=== PATIENT | female | born 1990 | race Caucasian/White ===

== ENCOUNTER 2020-05-01 16:15 | Emergency (ER) | payer SELFPAY ==
[~2020-05-01] VITALS: Ht 162.6 cm; Wt 97.7 kg
[2020-05-01 16:25] VITALS: BP 157/114
[2020-05-01] MEDS ORDERED: AMOXICILLIN/K CLAV 875/125MG TABLET. PO ONE (16:45)
[2020-05-01] MEDS ORDERED: DEXAMETHASONE 4 MG TABLET PO ONE (16:45)
[2020-05-01] MEDS ORDERED: HYDR-3164 PO (16:50)
[2020-05-01] MEDS ORDERED: AMOX1TAB61 PO (16:50)
[2020-05-01] MEDS ORDERED: PRED20TA PO (16:50)
--- NOTE | 2020-05-01 16:50 | PHYS DOC ---
Past Medical History Past Medical History: Migraines Past Surgical History: No Surgical History Smoking Status: Never Smoker Alcohol Use: None Drug Use: None General Adult EDM: Chief Complaint: DENTAL PROBLEM HPI: HPI: Ms. Adam is a 30-year-old white female who presents with 3-week history of dental swelling temperature sensitivity and pain. She reports having this issue about 9 months prior, this was resolved at her dentist office with incision and drainage. She reports episodic pain peaking at about 8 out of 10 with increased sensitivity to temperature, both hot and cold. Between episodes she has 0 pain. Pain does not radiate there are no alleviating factors other than rest. Review of Systems: Review of Systems: Constitutional: Denies fever or chills. [] Eyes: Denies change in visual acuity. [] HENT: Denies nasal congestion or sore throat. [] Respiratory: Denies cough or shortness of breath. [] Cardiovascular: Denies chest pain or edema. [] GI: Denies abdominal pain, nausea, vomiting, bloody stools or diarrhea. [] : Denies dysuria. [] Musculoskeletal: Denies back pain or joint pain. [] Integument: Denies rash. [] Neurologic: Denies headache, focal weakness or sensory changes. [] Endocrine: Denies polyuria or polydipsia. [] Lymphatic: Denies swollen glands. [] Psychiatric: Denies depression or anxiety. [] Heart Score: Risk Factors: Risk Factors: DM, Current or recent (<one month) smoker, HTN, HLP, family history of CAD, obesity. Risk Scores: Score 0 - 3: 2.5% MACE over next 6 weeks - Discharge Home Score 4 - 6: 20.3% MACE over next 6 weeks - Admit for Clinical Observation Score 7 - 10: 72.7% MACE over next 6 weeks - Early Invasive Strategies Current Medications: Current Medications Medications (Trade) Dose Ordered Sig/Tito Start Time Stop Time Status Last Admin Dose Admin Amoxicillin/ Clavulanate Potassium (Augmentin 875/ 125mg) 1 tab 1X ONCE 05/01/20 16:45 05/01/20 16:46 Dexamethasone (Decadron) 10 mg 1X ONCE 05/01/20 16:45 05/01/20 16:46 Allergies: Allergies: Allergies Coded Allergies Type Severity Reaction Last Updated Verified iodine Allergy Intermediate 05/01/20 Yes shellfish derived Allergy Intermediate 05/01/20 Yes Iodine, shellfish. Seasonal allergies to pollen: Sinus irritation Physical Exam: PE: Constitutional: Well developed, well nourished, no acute distress, non-toxic appearance HENT: Normocephalic, atraumatic. Cranial nerves II through XII grossly intact bilaterally. No submandibular swelling. Poor dentition, cracked second molar on left lower jaw, cavity located on third molar left lower jaw. Apparent irritated area located on left lower gumline. Eyes: PERRL, EOMI, conjunctiva normal, no discharge. Neck: Normal range of motion, no tenderness, supple. No adenopathy detected. No carotid bruit detected Lungs & Thorax: Bilateral breath sounds clear to auscultation, no wheezing Heart: Regular rate and rhythm no murmurs, S1-S2 normal, no S3 or S4. Abdomen: Soft, no tenderness. Bowel sounds present all 4 quadrant. Skin: Warm, dry, no erythema, no rash Back: No tenderness, no CVA tenderness Extremities: No tenderness, ROM intact, no edema Neurologic: Alert and oriented X 3, normal motor function, normal sensory function, no focal deficits noted Psychologic: Affect normal, judgment normal Current Patient Data: Vital Signs: Vital Signs Date Time Temp Pulse Resp B/P (MAP) Pulse Ox O2 Delivery O2 Flow Rate FiO2 05/01/20 16:25 97.8 102 20 157/114 (128) 95 Room Air 97.8 EKG: EKG: [] Radiology/Procedures: Radiology/Procedures: [] Course & Med Decision Making: Course & Med Decision Making Pertinent Labs and Imaging studies reviewed. (See chart for details) [] Lucien Disclaimer: Lucien Disclaimer: This electronic medical record was generated, in whole or in part, using a voice recognition dictation system. Departure Departure Impression: Primary Impression: Dentalgia Additional Impression: Dental caries Disposition: 01 HOME, SELF-CARE Condition: STABLE Referrals: NO PCP (PCP) Patient Instructions: Dental Caries, Toothache-Brief Additional Instructions: Please follow with your doctor and/or free clinic for further evaluation and treatment of your medical problems including hypertension. Please follow closely with your dentist or dental clinic for further management of your dental issues. Scripts Metoprolol Tartrate (METOPROLOL TARTRATE) 50 Mg Tablet 1 TAB PO BID for 14 Days, #28 TAB Prov: MICHAEL RONQUILLO DO 05/01/20 Chlorhexidine Gluconate (PERIDEX) 15 Ml Mouthwash 15 ML PO BID, #473 ML 0 Refills Prov: MICHAEL RONQUILLO DO 05/01/20 Amoxicillin/Potassium Clav (AUGMENTIN 875-125 TABLET) 1 Each Tablet 1 TAB PO BID for 7 Days, #14 TAB Prov: MICHAEL RONQUILLO DO 05/01/20 Prednisone (PREDNISONE) 20 Mg Tablet 2 TAB PO DAILY, #8 TAB Start this prescription tomorrow, Friday05/02/20 Prov: MICHAEL RONQUILLO DO 05/01/20 Hydrocodone/Apap 5-325 (NORCO 5-325 TABLET) 1 Each Tablet 0.5-1 TAB PO PRN Q6HRS PRN for PAIN, #10 TAB 0 Refills Prov: MICHAEL RONQUILLO DO 05/01/20 Justicifation of Admission Dx: Justifications for Admission: Justification of Admission Dx: N/A MICHAEL RONQUILLO DO May 01, 2020 16:50
[2020-05-01] MEDS ORDERED: METO50TA6 PO (17:08)
[2020-05-01] MEDS ORDERED: CHLO15MO2 PO (17:08)
[2020-05-01] MEDS ORDERED: HYDROcodone/APAP 5/325MG 1 TAB TABLET PO ONE (17:15)
== END 2020-05-01 17:13 | disposition home or self-care (01) ==
LOC: ER 16:15
DX: K02.9 Dental caries, unspecified (principal); K08.89 Other specified disorders of teeth and supporting structures; R60.0 Localized edema; R20.2 Paresthesia of skin; G43.909 Migraine, unspecified, not intractable, without status migrainosus; Z91.041 Radiographic dye allergy status; Z91.013 Allergy to seafood; Z88.8 Allergy status to other drugs, medicaments and biological substances
CPT/HCPCS: 99284

== ENCOUNTER 2020-11-09 08:40 | Emergency (ER) | payer SELFPAY ==
[~2020-11-09] VITALS: Ht 154.9 cm; Wt 104.0 kg
[~2020-11-09 08:40] MED LIST: AMOX1TAB61 PO; CHLO15MO2 PO; HYDR-3164 PO; METO50TA6 PO; PRED20TA PO
--- NOTE | 2020-11-09 09:41 | PHYS DOC ---
Past Medical History Past Medical History: A-Fib, Hypertension, Migraines Past Surgical History: No Surgical History Smoking Status: Never Smoker Alcohol Use: None Drug Use: None General Adult EDM: Chief Complaint: Palpitations HPI: HPI: Patient is a 30 year old female who presented to ER due to heart palpitation and chest pain since 7 AM this morning. Patient had had a headache for couple days, denies any fever, no cough, no nausea vomiting. Patient has history of atrial flutter 11 years ago. She was admitted at [facility] for a week, they did extensive work-up but did not find anything wrong. Patient is not on any medication at this time beside vitamin. Patient is not a smoker. Patient has no history of blood clot disorder. Review of Systems: Review of Systems: Constitutional: Denies fever or chills. [] Eyes: Denies change in visual acuity. [] HENT: Denies nasal congestion or sore throat. [] Respiratory: Denies cough or shortness of breath. [] Cardiovascular: Positive for chest pain, positive for heart palpitation, no edema GI: Denies abdominal pain, nausea, vomiting, bloody stools or diarrhea. [] : Denies dysuria. [] Musculoskeletal: Denies back pain or joint pain. [] Integument: Denies rash. [] Neurologic: Positive for headache, no focal weakness or numbness Endocrine: Denies polyuria or polydipsia. [] Lymphatic: Denies swollen glands. [] Psychiatric: Denies depression or anxiety. [] Heart Score: C/O Chest Pain: Yes HEART Score for Chest Pain: HEART Score for Chest Pain Response (Comments) Value History Slighlty/Non-Suspicious 0 ECG Normal 0 Age < 45 0 Risk Factors No Risk Factors 0 Troponin < Normal Limit 0 Total 0 Risk Factors: Risk Factors: DM, Current or recent (<one month) smoker, HTN, HLP, family history of CAD, obesity. Risk Scores: Score 0 - 3: 2.5% MACE over next 6 weeks - Discharge Home Score 4 - 6: 20.3% MACE over next 6 weeks - Admit for Clinical Observation Score 7 - 10: 72.7% MACE over next 6 weeks - Early Invasive Strategies Allergies: Allergies: Allergies Coded Allergies Type Severity Reaction Last Updated Verified iodine Allergy Intermediate 05/01/20 Yes shellfish derived Allergy Intermediate 05/01/20 Yes Physical Exam: PE: Constitutional: Well developed, well nourished, no acute distress, non-toxic ap pearance. [] HENT: Normocephalic, atraumatic, bilateral external ears normal, oropharynx moist, no oral exudates, nose normal. [] Eyes: PERRLA, EOMI, conjunctiva normal, no discharge. [] Neck: Normal range of motion, no tenderness, supple, no stridor. [] Cardiovascular:Heart rate regular rhythm, no murmur [] Lungs & Thorax: Bilateral breath sounds clear to auscultation [] Abdomen: Bowel sounds normal, soft, no tenderness, no masses, no pulsatile masses. [] Skin: Warm, dry, no erythema, no rash. [] Back: No tenderness, no CVA tenderness. [] Extremities: No tenderness, no cyanosis, no clubbing, ROM intact, no edema. [] Neurologic: Alert and oriented X 3, normal motor function, normal sensory function, no focal deficits noted. [] Psychologic: Affect normal, judgement normal, mood normal. [] Current Patient Data: Vital Signs: Vital Signs Date Time Temp Pulse Resp B/P (MAP) Pulse Ox O2 Delivery O2 Flow Rate FiO2 11/09/20 08:45 98.7 107 20 144/118 (127 98 Room Air 98.7 EKG: EKG: EKG was done at a 52, heart rate of 98 beats per minute, normal sinus rhythm, no ST segment elevation Radiology/Procedures: Radiology/Procedures: [][facility] [address] [place] [address] IMAGING REPORT Signed PATIENT: SAVANNAH REED ACCOUNT: [id number] : 1990 LOCATION: ER AGE: 30 SEX: F EXAM STATUS: REG ER ORD. PHYSICIAN: NATHANIEL GONZALEZ DO REASON: chest pain PROCEDURE: PORTABLE CHEST 1V EXAM: Chest, single view. HISTORY: Chest pain. COMPARISON: 03/23/2015 FINDINGS: A frontal view of the chest is obtained. There is no infiltrate, pleural effusion or pneumothorax. There is a metallic KV overlying the right thorax. IMPRESSION: No acute pulmonary finding. Electronically signed by: Susie Francisco MD (11/09/2020 9:51 AM) [id number] DICTATED and SIGNED BY: SUSIE FRANCISCO MD DATE: 11/09/20 [id number] 0 Course & Med Decision Making: Course & Med Decision Making Pertinent Labs and Imaging studies reviewed. (See chart for details) Patient is a 30-year-old female who presented to ER due to chest pain and heart palpitations and waking up this morning, EKG and cardiac enzymes did not show any acute problem. Chest x-ray was normal. Patient was discharged home in stable condition. [employer] Disclaimer: [employer] Disclaimer: This electronic medical record was generated, in whole or in part, using a voice recognition dictation system. Departure Departure Impression: Primary Impression: Chest pain Disposition: 01 DC HOME SELF CARE/HOMELESS Condition: STABLE Referrals: NO PCP (PCP) Follow up with your doctor as needed next week Patient Instructions: Chest Pain (Nonspecific), Palpitations Additional Instructions: Thank you for visiting our Emergency Department. We appreciate you trusting us with your care. If any additional problems come up don't hesitate to return to visit us. Please follow up with your primary care provider so they can plan additional care if needed and know about the problem that you had. If symptoms worsen come back to the Emergency Department. Any concerning symptoms that start such as chest pain, shortness of air, weakness or numbness on one side of the body, running high fevers or any other concerning symptoms return to the ER. NATHANIEL GONZALEZ DO Nov 09, 2020 09:41
--- NOTE | 2020-11-09 09:54 | RAD ---
EXAM: Chest, single view. HISTORY: Chest pain. COMPARISON: 03/23/2015 FINDINGS: A frontal view of the chest is obtained. There is no infiltrate, pleural effusion or pneumo thorax. There is a metallic KV overlying the right thorax. IMPRESSION: No acute pulmonary finding. Electronically signed by: Susie Francisco MD (11/09/2020 9:51 AM) [id number]
[2020-11-09 09:57] LABS: CALCIUM 8.9 mg/dL (8.5-10.1); CREATININE 0.7 mg/dL (0.6-1.0); GFR 98.3; POTASSIUM 3.9 mmol/L (3.5-5.1)
[2020-11-09 10:03] LABS: ALBUMIN 3.9 g/dL (3.4-5.0); ALBUMIN/GLOBULIN RATIO 1.1 (1.0-1.7); BASO % 0 % (0-3); EOS # 0.2 x10^3/uL (0.0-0.7); EOS % 2 % (0-3); HEMATOCRIT 42.6 % (36.0-47.0); HEMOGLOBIN 14.4 g/dL (12.0-15.5); LYMPH # 1.8 x10^3/uL (1.0-4.8); LYMPH % 19 % (24-48); MAGNESIUM 1.8 mg/dL (1.8-2.4); MEAN CORPUSCULAR HEMOGLOBIN 30 pg (25-35); MEAN CORPUSCULAR HGB CONC 34 g/dL (31-37); MEAN CORPUSCULAR VOLUME 90 fL (79-100); MONO # 0.5 x10^3/uL (0.0-1.1); MONO % 5 % (0-9); NEUT # 7.3 x10^3/uL (1.8-7.7); NEUT % 74 % (31-73); PLATELET COUNT 184 x10^3/uL (140-400); RED BLOOD COUNT 4.73 x10^6/uL (3.50-5.40); RED CELL DISTRIBUTION WIDTH 13.8 % (11.5-14.5); TOTAL BILIRUBIN 0.2 mg/dL (0.2-1.0); TOTAL PROTEIN 7.6 g/dL (6.4-8.2); WHITE BLOOD COUNT 9.8 x10^3/uL (4.0-11.0)
[2020-11-09 10:04] LABS: PREG TEST PT QUAL NEGATIVE (NEG)
[2020-11-09] MEDS: KETOROLAC 30 MG/ML VIAL. IVP ONE (10:16)
[2020-11-09 11:46] VITALS: BP 123/77
[2020-11-09] MEDS: ACETAMINOPHEN 500 MG TABLET PO ONE (11:51)
[2020-11-09 12:10] LABS: BILIRUBIN,URINE NEGATIVE (NEG); CLARITY,URINE CLEAR; COLOR,URINE YELLOW
[2020-11-09 12:11] LABS: NITRITE,URINE NEGATIVE (NEG); PROTEIN,URINE NEGATIVE (NEG-TRACE); UROBILINOGEN,URINE 0.2 mg/dL (0.2 mg/dL)
[2020-11-09 12:12] LABS: BACTERIA,URINE FEW /HPF (0-FEW); RBC,URINE 0 /HPF (0-2)
== END 2020-11-09 12:05 | disposition home or self-care (01) ==
LOC: ER 08:40
DX: R07.89 Other chest pain (principal); R00.2 Palpitations; G43.909 Migraine, unspecified, not intractable, without status migrainosus; I10 Essential (primary) hypertension; I48.91 Unspecified atrial fibrillation; Z91.013 Allergy to seafood; Z88.8 Allergy status to other drugs, medicaments and biological substances
CPT/HCPCS: 36415; 71045; 80053; 81001; 83690; 83735; 83880; 84484; 84703; 85025; 87086; 93005; 96374; 99285; J1885

== ENCOUNTER 2020-12-04 16:55 | Emergency (ER) | payer SELFPAY ==
[~2020-12-04] VITALS: Ht 154.9 cm; Wt 93.0 kg
[2020-12-04] MEDS ORDERED: PENI500T PO (18:59)
--- NOTE | 2020-12-04 18:59 | ED.ADGEN ---
Past Medical History Past Medical History: A-Fib, Hypertension, Migraines Past Surgical History: No Surgical History Smoking Status: Never Smoker Alcohol Use: None Drug Use: None General Adult EDM: Chief Complaint: DENTAL PROBLEM HPI: HPI: Patient is a 30 year old female who presents emergency department with complaints of right sided posterior dental pain for the last 3 days. She reports that she has a broken tooth in the area. She has taken Tylenol with no relief of her pain. Patient denies any fever, cough, body aches, nausea, vomiting, diarrhea, abdominal pain, sore throat, or ear pain. She currently rates her pain a 6 out of 10 on pain scale describes the pain as a throbbing sensation. She denies any alleviating factors. She reports that she has an appointment with her dentist later this week. Review of Systems: Review of Systems: Complete ROS is negative unless otherwise noted in HPI. Allergies: Allergies: Allergies Coded Allergies Type Severity Reaction Last Updated Verified iodine Allergy Intermediate 05/01/20 Yes shellfish derived Allergy Intermediate 05/01/20 Yes Physical Exam: PE: See Above Constitutional: Well developed, well nourished, no acute distress, non-toxic appearance. [] HENT: Normocephalic, atraumatic, bilateral external ears normal, nose normal; diffuse dental pain with broken posterior molar on the right, no visible dental abscess, generalized gingival erythema Eyes: PERRLA, EOMI, conjunctiva normal, no discharge. [] Neck: Normal range of motion, supple, nontender, no stridor. [] Cardiovascular:Heart rate regular rhythm Lungs & Thorax: Respirations even and unlabored, no retractions, no respiratory distress Skin: Warm, dry, no erythema, no rash. [] Extremities: No cyanosis, ROM intact, no edema. [] Neurologic: Alert and oriented X 3, no focal deficits noted. [] Psychologic: Affect normal, judgement normal, mood normal. [] Current Patient Data: Vital Signs: Vital Signs Date Time Temp Pulse Resp B/P (MAP) Pulse Ox O2 Delivery O2 Flow Rate FiO2 12/04/20 17:20 97.2 71 16 126/81 (96) 99 Room Air 97.2 EKG: EKG: [] Heart Score: C/O Chest Pain: No Risk Scores: Score 0 - 3: 2.5% MACE over next 6 weeks - Discharge Home Score 4 - 6: 20.3% MACE over next 6 weeks - Admit for Clinical Observation Score 7 - 10: 72.7% MACE over next 6 weeks - Early Invasive Strategies Radiology/Procedures: Radiology/Procedures: [] Course & Med Decision Making: Course & Med Decision Making Pertinent Labs and Imaging studies reviewed. (See chart for details) [] Lucien Disclaimer: Dragon Disclaimer: This electronic medical record was generated, in whole or in part, using a voice recognition dictation system. Departure Departure Impression: Primary Impression: Broken tooth Additional Impression: Dental infection Disposition: 01 DC HOME SELF CARE/HOMELESS Condition: STABLE Referrals: REBA BOYER MD (PCP) Patient Instructions: Dental Pain, [id number] Additional Instructions: Fill prescription(s) and use as directed. Tylenol or ibuprofen as needed for pain. You may purchase a temporary repair such as Dentemp at a local pharmacy to put over the broken tooth until your appointment with your dentist. I ryan mmend that you follow-up with your dentist within the next 1 to 2 days for reevaluation and treatment. Return to the ER if symptoms worsen or fever develops. Scripts Penicillin V Potassium (PENICILLIN V POTASSIUM) 500 Mg Tablet 1 TAB PO QID for 10 Days, #40 TAB 0 Refills Prov: ZACH [facility] [employer] 12/04/20 Problem Qualifiers Primary Impression: Broken tooth Encounter type: initial encounter Fracture type: open Qualified Codes: S02.5XXB - Fracture of tooth (traumatic), initial encounter for open fracture ZACH [employer] [employer] Dec 04, 2020 18:59
== END 2020-12-04 19:10 | disposition home or self-care (01) ==
LOC: ER 16:55
DX: S02.5XXA Fracture of tooth (traumatic), initial encounter for closed fracture (principal); K04.7 Periapical abscess without sinus; K08.89 Other specified disorders of teeth and supporting structures; R20.2 Paresthesia of skin; I48.20 Chronic atrial fibrillation, unspecified; I10 Essential (primary) hypertension; G43.909 Migraine, unspecified, not intractable, without status migrainosus; Z91.041 Radiographic dye allergy status; Z91.013 Allergy to seafood; X58.XXXA Exposure to other specified factors, initial encounter; Y93.89 Activity, other specified; Y92.89 Other specified places as the place of occurrence of the external cause; Y99.8 Other external cause status
CPT/HCPCS: 99283